=== PATIENT | female | born 1955 | race Caucasian/White ===

== ENCOUNTER 2016-05-28 12:51 | Emergency (ER) | payer OTHER ==
[2016-05-28] MEDS ORDERED: IOPAMIDOL 370 (76%) IV.SOLN 150 ML IV ONE (12:52)
[2016-05-28 13:41] LABS: ABSOLUTE NEUTROPHIL COUNT 3.5 K/mm3 (1.8-7.7); BASO # 0.1 K/mm3 (0.0-0.2); BASO % 0.9 % (0.2-1.0); EOS # 0.2 (0.0-0.5); EOS % 4.2 % (0.9-2.9); HEMATOCRIT 40.2 % (37.0-47.0); HEMOGLOBIN 13.1 gm/l (12.0-16.0); IMM NEUT% 0.2 % (0-1); LYMPH # 1.3 (1.0-4.8); LYMPH % 23.2 % (15-45); MEAN CELL VOLUME 98.5 fl (81.0-99.0); MEAN CORPUSCULAR HEMOGLOBIN 32.1 pg (27.0-31.0); MEAN CORPUSCULAR HGB CONC 32.6 g/dl (33.0-37.0); MEAN PLATELET VOLUME 9.2 fl (7.4-10.4); MONO # 0.4 (0.0-0.8); NEUT % 64.5 % (43-75); PLATELET COUNT 446 K/mm3 (130-400); RED CELL DISTRIBUTION WIDTH 12.4 % (11.5-14.5)
[2016-05-28] MEDS ORDERED: ONDANSETRON 4 MG/2ML 2 ML VIAL ONE (13:46)
[2016-05-28] MEDS ORDERED: MORPHINE SULFATE 4 MG/ML SYRINGE ONE (13:46)
[2016-05-28] MEDS ORDERED: SODIUM CHLORIDE 0.9% 1,000 ML ONE (13:46)
[2016-05-28 13:54] LABS: ALB/GLOB RATIO 1.3 (>1.0); ALBUMIN 3.6 gm/dL (3.5-5.7); CALCIUM 8.7 mg/dL (8.6-10.3)
--- NOTE | 2016-05-28 14:27 | CT ---
ABD/PELVIS W/ CON COMPARISON: None. HISTORY: Left lower quadrant pain. Technique: No oral contrast. Intravenous injection 125 mL Isovue 370. Using a [employer] Aquilion [address] scanner, images were obtained from the diaphragm to the floor the pelvis. An automated dose reduction technique was used to minimize patient radiation dose. Dose information: CTDIvol (mGy): 22.50 DLP(mGycm): 1179.00 FINDINGS: Lung bases: Normal. Inferior mediastinum and heart: Normal heart size. Mild hiatal hernia. Liver: Normal. Gallbladder: Cholecystectomy. Bile ducts: Normal. Pancreas: Normal. Spleen: Normal. Adrenal glands: Normal. Kidneys: Normal right kidney. 14 mm cyst, upper pole of the left kidney. Ureters: Normal Urinary bladder: Normal. Uterus and adnexa: Hysterectomy. Blood vessels: Normal Lymph nodes: Normal Stomach: Normal Duodenum: Normal Small intestine: Normal Appendix: Normal Colon: Diverticulosis of the descending and sigmoid colon. Diverticulitis with no wall thickening and inflammatory stranding in the adjacent fat, in the sigmoid colon. No perforation. No abscess. Abdominal wall and supporting musculature: Normal Bones: No lytic or blastic lesions. Degenerative changes in the spine, symphysis pubis, and the left hip. IMPRESSION: 1. Diverticulitis of the sigmoid colon without perforation or abscess. 2. Incidental findings include: Mild hiatal hernia, cholecystectomy, 14 mm cyst in the upper pole left kidney, hysterectomy, and degenerative changes in the spine, symphysis pubis, and the left hip. The report was sent to the emergency department electronic medical record system, 05/28/2016 at 14:28
[2016-05-28 14:40] LABS: PH,URINE 6.5 (5.0-8.0); SPECIFIC GRAVITY 1.015 (1.001-1.030); URINE BILIRUBIN NEGATIVE (NEGATIVE); URINE BLOOD NEGATIVE (NEGATIVE); URINE GLUCOSE (UA) NEGATIVE (NEGATIVE); URINE LEUKOCYTE ESTERASE NEGATIVE (NEGATIVE); URINE NITRITE NEGATIVE (NEGATIVE); URINE PROTEIN NEGATIVE (NEGATIVE); URINE UROBILINOGEN NORMAL (0-1 mg/dl)
[2016-05-28 14:42] LABS: URINE APPEARANCE CLEAR; URINE COLOR YELLOW
== END 2016-05-28 16:45 | disposition home or self-care (01) ==
LOC: ED 12:51
DX: K57.92 Diverticulitis of intestine, part unspecified, without perforation or abscess without bleeding (principal); R11.2 Nausea with vomiting, unspecified
CPT/HCPCS: 83690; 85025; 80053; 81003; 74177; J2405; J7030; Q9967

== ENCOUNTER 2016-07-24 22:29 | Emergency (ER) | payer OTHER ==
[2016-07-24] MEDS ORDERED: METHYLPRED SOD SUCCINATE 125 MG VIAL ONE (22:50)
[2016-07-24] MEDS ORDERED: DIPHENHYDRAMINE HCL 50 MG/1 ML VIAL ONE (22:50)
[2016-07-24] MEDS ORDERED: FAMOTIDINE 10 MG/ML 2ML VIAL ONE (22:51)
== END 2016-07-24 23:31 | disposition home or self-care (01) ==
LOC: ED 22:29
DX: T78.40XA Allergy, unspecified, initial encounter (principal); H01.9 Unspecified inflammation of eyelid; X58.XXXA Exposure to other specified factors, initial encounter
CPT/HCPCS: 96375 ×2; 99283 ×2; 96374; J1200; J2930